=== PATIENT | male | born 1995 | race Caucasian/White ===

== ENCOUNTER 2018-10-29 16:38 | Emergency (ER) | payer MEDICAID ==
[~2018-10-29] VITALS: Ht 170.2 cm; Wt 75.7 kg
[2018-10-29 16:42] VITALS: BP 152/95
--- NOTE | 2018-10-29 16:55 | NUR ---
VSS. WAIT IN LOBBY.
--- NOTE | 2018-10-29 17:07 | NUR ---
Patient returned to ED lobby following XRAY to wait for an available bed.
--- NOTE | 2018-10-29 17:45 | NUR ---
PATIENT AMBULATED TO ER BED 2.
[2018-10-29 17:46] VITALS: BP 152/95
--- NOTE | 2018-10-29 17:46 | NUR ---
PATIENT IS A 23 Y/O MALE WHO PRESENTS TO THE ED C/O LACERATION. PT WAS AT HOME AND CUT L 3RD DIGIT WITH A FRUIT CANNER. PT WASHED UNDER WATER AND SPRAYED WITH ALCOHOL. PT DENIES PAIN AT THIS TIME. NOTED LAC WITH CONTROLLED BLEEDING, CMS INTACT. LAST TDAP >5 YEARS AGO. PT AWAKE AND ALERT, RR EVEN/UNLABORED. PT REPOSITIONED FOR COMFORT, BED IN LOWEST POSITION. ER MD DR. MOULTON NOTIFIED. WILL CONTINUE TO MONITOR. DENIES [facility] NKA
--- NOTE | 2018-10-29 18:05 | NUR ---
LACERATION WASHED AND RINSED BY CHRISTOPHER EMT.
--- NOTE | 2018-10-29 18:20 | NUR ---
DR. MOULTON PERFORMING LAC REPAIR AT THIS TIME.
[2018-10-29] MEDS ORDERED: NEOMYCIN/POLYMYXIN/BACITRACIN 0.9 GM/1 PKT TP ONE ×2 (18:40→18:49)
--- NOTE | 2018-10-29 19:30 | NUR ---
PATIENT DISCHARGED BY DR. MOULTON. NO PRESCRIPTIONS GIVEN. ALL QUESTIONS ADDRESSED AND ANSWERED. ID BAND REMOVED. AMB TO CAR.
--- NOTE | 2018-10-31 08:22 | NUR ---
PER [employer] TEACHER LISA, CALLED PT REGARDING XRAY RESULT. NO ANSWER. LEFT MESSAGE.
--- NOTE | 2018-10-31 09:00 | NUR ---
PATIENT CALLED BACK REGARDING XRAY REPORT. TRANSFERRED TO DR. CALLAHAN.
== END 2018-10-29 19:30 | disposition home or self-care (01) ==
LOC: MED 16:38
DX: S61.213A Laceration without foreign body of left middle finger without damage to nail, initial encounter (principal); W26.8XXA Contact with other sharp object(s), not elsewhere classified, initial encounter; Y93.89 Activity, other specified; Y92.89 Other specified places as the place of occurrence of the external cause; Y99.8 Other external cause status
CPT/HCPCS: 12001; 73130; 99283

== ENCOUNTER 2018-11-05 16:19 | Emergency (ER) | payer MEDICAID ==
[~2018-11-05] VITALS: Ht 172.7 cm; Wt 75.9 kg
[2018-11-05 16:29] VITALS: BP 138/75
--- NOTE | 2018-11-05 16:48 | NUR ---
PATIENT AMBULATED TO ER BED 12.
--- NOTE | 2018-11-05 16:49 | NUR ---
PATIENT IS A 23 Y/O MALE WHO PRESENTS TO THE ED FOR SUTURE REMOVAL. PT STATES THAT HE CUT HIS L THIRD FINGER WITH A SENIOR SOUS CHEF ON 10/29/18. PATIENT HAD A LAC REPAIR DONE AT [facility]. NOTED SUTURES TO L THIRD FINGER. PT DENIES PAIN AT THIS TIME. CMS INTACT. PT DENIES CP, SOB, N/V/D. PT AWAKE AND ALERT, RR EVEN/UNLABORED. PT REPOSITIONED FOR COMFORT, BED IN LOWEST POSITION. ER PROVIDER NOTIFIED. WILL CONTINUE TO MONITOR. DENIES [facility] NKA
[2018-11-05] MEDS ORDERED: BACITRACIN OINT 500 UNITS/GM PKT TP ONE (17:10)
[2018-11-05 17:22] VITALS: BP 132/88
--- NOTE | 2018-11-05 17:22 | NUR ---
Patient discharged with v/s stable. Written and verbal after care instructions given and explained. Patient verbalized understanding. Ambulatory with steady gait. All questions addressed prior to discharge. Advised to follow up with PMD.
== END 2018-11-05 17:22 | disposition home or self-care (01) ==
LOC: MED 16:19
DX: S61.213A Laceration without foreign body of left middle finger without damage to nail, initial encounter (principal); X58.XXXD Exposure to other specified factors, subsequent encounter
CPT/HCPCS: 99283

== ENCOUNTER 2022-12-01 01:12 | Emergency (ER) | payer MEDICAID ==
[~2022-12-01] VITALS: Ht 167.6 cm; Wt 78.9 kg
[2022-12-01 01:17] VITALS: BP 166/86; PULSE 68; RESP 18; TEMP 98; O2SAT 99
[2022-12-01] MEDS ORDERED: ACETAMINOPHEN EXTRA STRENGTH 500 MG TAB PO ONE (02:40)
[2022-12-01] MEDS ORDERED: ACET-10509 PO (02:55)
[2022-12-01] MEDS ORDERED: IBUP-2213 PO (02:55)
[2022-12-01 04:48] VITALS: BP 166/86; PULSE 68; RESP 18; TEMP 98; O2SAT 99
== END 2022-12-01 04:45 | disposition home or self-care (01) ==
LOC: MED 01:12
DX: S20.219A Contusion of unspecified front wall of thorax, initial encounter (principal); Z02.89 Encounter for other administrative examinations; Z79.899 Other long term (current) drug therapy; V49.49XA Driver injured in collision with other motor vehicles in traffic accident, initial encounter; Y93.89 Activity, other specified; Y92.89 Other specified places as the place of occurrence of the external cause; Y99.8 Other external cause status
CPT/HCPCS: 71045; 99283

== ENCOUNTER 2023-06-22 18:51 | Emergency (ER) | payer SELFPAY ==
[~2023-06-22] VITALS: Ht 170.2 cm; Wt 78.9 kg
[~2023-06-22 18:51] MED LIST: ACET-10509 PO; IBUP-2213 PO
[2023-06-22 18:58] VITALS: BP 135/83; PULSE 70; RESP 19; TEMP 98.3; O2SAT 99
[2023-06-22] MEDS ORDERED: CEPH-588 PO (22:25)
[2023-06-22] MEDS ORDERED: IBUP-2213 PO (22:25)
[2023-06-23] MEDS ORDERED: CEPH-588 PO (20:55)
[2023-06-23] MEDS ORDERED: IBUP-2213 PO (20:55)
== END 2023-06-22 22:33 | disposition home or self-care (01) ==
LOC: MED 18:51
DX: S80.02XA Contusion of left knee, initial encounter (principal); L03.116 Cellulitis of left lower limb; Z79.899 Other long term (current) drug therapy; X58.XXXA Exposure to other specified factors, initial encounter; Y93.89 Activity, other specified; Y92.89 Other specified places as the place of occurrence of the external cause; Y99.8 Other external cause status
CPT/HCPCS: 73562; 99283